=== PATIENT | female | born 1985 | race Caucasian/White ===

== ENCOUNTER 2017-09-22 05:40 | Emergency (ER) | payer OTHER ==
[~2017-09-22] VITALS: Ht 170.2 cm; Wt 90.0 kg
[2017-09-22 07:53] LABS: BASOPHILS % 0.4 % (0.0-2.0); EOSINOPHILS % 0.2 % (0.0-5.0); HEMATOCRIT. 37.7 % (36.0-48.0); HEMOGLOBIN. 12.6 g/dL (12.0-16.0); LYMPHOCYTES % 11.5 % (20.0-50.0); MEAN CORPUSCULAR HEMOGLOBIN 30.1 pg (28.0-32.0); MEAN CORPUSCULAR VOLUME 90.3 fL (81.0-99.0); MEAN PLATELET VOLUME 8.5 fl (7.4-10.4); NEUTROPHILS % 82.9 % (40.0-76.0); PLATELET 268 x1000/uL (130-400); RED BLOOD CELL COUNT 4.18 mill/uL (4.2-5.4); RED CELL DISTRIBUTION WIDTH 13.3 % (11.6-14.6)
[2017-09-22 08:05] LABS: CHLORIDE 109 mEq/L (98-107)
[2017-09-22 08:07] LABS: HCG SCREEN NEGATIVE
[2017-09-22] MEDS ORDERED: HYDROCODONE/ACETAMINOPHEN 5/325MG TABLET PO ONE (08:30)
[2017-09-22] MEDS ORDERED: IOHEXOL-300 100 ML BOTTLE ONE (10:27)
[2017-09-22 11:15] VITALS: BP 113/68
== END 2017-09-22 11:28 | disposition home or self-care (01) ==
LOC: ER 05:40
DX: M54.2 Cervicalgia (principal); R07.89 Other chest pain; R10.9 Unspecified abdominal pain; R51 Headache; M25.572 Pain in left ankle and joints of left foot; M25.571 Pain in right ankle and joints of right foot; M47.812 Spondylosis without myelopathy or radiculopathy, cervical region; M48.02 Spinal stenosis, cervical region; M50.222 Other cervical disc displacement at C5-C6 level; M50.223 Other cervical disc displacement at C6-C7 level; V43.52XA Car driver injured in collision with other type car in traffic accident, initial encounter; Y93.89 Activity, other specified; Y92.410 Unspecified street and highway as the place of occurrence of the external cause
CPT/HCPCS: 36415; 70450; 71260; 72125; 73562; 73610; 73630; 74177; 80053; 84703; 85025; 99285; Q9967